=== PATIENT | male | born 1990 | race Hispanic/Latino ===

== ENCOUNTER 2016-08-02 21:14 | Emergency (ER) | payer OTHER ==
[2016-08-02 21:23] VITALS: RESP 16
[2016-08-02] MEDS ORDERED: diaZEpam 10 mg/2 ml Inj IVP ONE (21:29)
--- NOTE | 2016-08-02 21:30 | ED PDOC ---
Upper Extremity Pain/Injury Time Seen by Provider: 08/02/16 21:20 Chief Complaint (Nursing): Upper Extremity Problem/Injury Chief Complaint (Provider): Shoulder dislocation History Per: Patient Additional Complaint(s): Pt. is a 26 yo male, PMH of SVT requiring Ablation, brought in by [facility] for eval of left shoulder dislocation. Pt. states he fell and braced himself on his left forearm. Positive deformity to left shoulder noted. Pt. denies LOC, denies any other injuries. Pt left hand dominant Orthopedic Care Patient Identification: Patient Stating Name, Patient Stating Birthdate, Hospital ID Bracelet Application Of:: Shoulder Immobilizer Past Medical History Reviewed: Nursing Documentation, Vital Signs Vital Signs: Last Vital Signs Temp 79.8 F L 08/02/16 21:21 Pulse 62 08/02/16 21:21 Resp 16 08/02/16 21:21 BP 103/69 08/02/16 21:21 Pulse Ox 100 08/02/16 21:21 - Medical History Other PMH: SVT - Family History Family History: States: No Known Family Hx - Living Arrangements Living Arrangements: With Family - Social History Current smoker - smoking cessation education provided: No Alcohol: Social Drugs: Denies - Home Medications Home Medications: Ambulatory Orders Medication Instructions Recorded Ibuprofen [Motrin] 600 mg PO Q6 #20 tab 08/02/16 oxyCODONE/Acetaminophen [Percocet 1 ea PO Q6 PRN #5 tab 08/02/16 5/325 mg Tab] - Allergies Allergies/Adverse Reactions: Allergies Allergy/AdvReac Type Severity Reaction Status Date / Time No Known Allergies Allergy Verified 08/02/16 21:23 Review of Systems ROS Statement: Except As Marked, All Systems Reviewed And Found Negative Musculoskeletal: Positive for: Shoulder Pain Physical Exam - Reviewed Nursing Documentation Reviewed: Yes Vital Signs Reviewed: Yes - Physical Exam Appears: Positive for: Well, Non-toxic, No Acute Distress Head Exam: Positive for: ATRAUMATIC, NORMAL INSPECTION, NORMOCEPHALIC Skin: Positive for: Normal Color, Warm, DRY Eye Exam: Positive for: EOMI, Normal appearance, PERRL ENT: Positive for: Normal ENT Inspection Neck: Positive for: Normal, Painless ROM Cardiovascular/Chest: Positive for: Regular Rate, Rhythm Respiratory: Positive for: CNT, Normal Breath Sounds Gastrointestinal/Abdominal: Positive for: Normal Exam, Bowel Sounds, Soft Back: Positive for: Normal Inspection Extremity: Positive for: Tenderness, Deformity Neurologic/Psych: Positive for: Alert, Oriented - ECG O2 Sat by Pulse Oximetry: 100 Medical Decision Making Medical Decision Making: Pt medicated with Morphine and Valium upon arrival. XR obtained revealing (+) Anterior dislocation. ED MD, Dr. Sánchez, called to bedside for conscious sedation. Procedure and Sedation consent forms obtained. Shoulder reduced by typewriter assembler with ED MD at bedside. Post reduction films reveal shoulder in place. Immobilizer in pace Advised ortho follow up and with [facility] as well Disposition - Clinical Impression Clinical Impression: Shoulder dislocation - Patient ED Disposition Is Patient to be Admitted: No - Disposition Referrals: Zohaib Cortez MD [Medical Doctor] - Disposition: Routine/Home Disposition Time: 23:49 Condition: GOOD Prescriptions: Ibuprofen [Motrin] 600 mg PO Q6 #20 tab oxyCODONE/Acetaminophen [Percocet 5/325 mg Tab] 1 ea PO Q6 PRN #5 tab PRN Reason: Pain, Severe (8-10) Instructions: Shoulder Dislocation (ED) - POA Present On Arrival: Falls Or Trauma Orthopedic Time Performed: 22:00 Time Out: Side verified, Site verified, Patient ID confirmed Procedure: Joint reduction Location: Left Consent obtained: Verbal Performed by: Mid-level Provider Diagnosis: Dislocation Location: Left Joints: Glenohumeral Joint Anesthetic Technique: Procedural sedation Procedural Sedation: Versed Systemic Analgesia: Morphine Capillary refill: Normal Distal Sensation: Normal Distal Motor Function: Normal Capillary Refill: Normal Compartment: Normal Distal Sensation: Normal Distal Motor Function: Normal Post-reduction Radiograph: Reduced Patient tolerated procedure: Well
[2016-08-02] MEDS ORDERED: diaZEpam 10 mg/2 ml Inj ONE (21:33)
[2016-08-02] MEDS ORDERED: Midazolam 2 MG/2 ML VIAL IV ONE (21:48)
[2016-08-02] MEDS ORDERED: Midazolam 2 MG/2 ML VIAL ONE (21:56)
[2016-08-02 23:49] VITALS: TEMP 98.2; O2SAT 100
[2016-08-03 07:37] VITALS: BP 123/83; PULSE 53
--- NOTE | 2016-08-03 10:24 | RAD ---
PROCEDURE: Radiographs of the Left Shoulder HISTORY: dislocation COMPARISON: No prior. FINDINGS: BONES: Normal. No fracture. JOINTS: There is a anterior inferior dislocation left humeral head with respect to the glenoid SOFT TISSUES: Normal. OTHER FINDINGS: None. IMPRESSION: Anterior inferior dislocation left humeral head with respect to the glenoid. No evidence of acute fracture seen.
--- NOTE | 2016-08-03 10:24 | RAD ---
PROCEDURE: Left shoulder dated 08/02/2016 HISTORY: post reduction film COMPARISON: Comparison made with prior study obtained earlier same day TECHNIQUE: Single-view left shoulder FINDINGS: Status post reduction previously noted anteriorly inferiorly dislocated left humeral head with respect to the glenoid. No definitive fracture seen. IMPRESSION: Status post reduction previously noted dislocated left humeral head. No definitive fracture seen.
== END 2016-08-03 00:10 | disposition home or self-care (01) ==
LOC: H.ER 21:14
DX: S43.102A Unspecified dislocation of left acromioclavicular joint, initial encounter (principal); W19.XXXA Unspecified fall, initial encounter; Y92.89 Other specified places as the place of occurrence of the external cause